=== PATIENT | female | born 1975 | race Caucasian/White ===

== ENCOUNTER 2016-05-21 14:17 | Emergency (ER) | payer OTHER ==
[2016-05-21] MEDS ORDERED: CEPHALEXIN 500 MG CAPSULE ONE (17:00)
[2016-05-21] MEDS ORDERED: SULFAMETHOXAZOLE 800 MG/TRIMETHOPRIM 160 MG TABLET ONE (17:01)
== END 2016-05-21 17:36 | disposition home or self-care (01) ==
LOC: ED 14:17
DX: L03.313 Cellulitis of chest wall (principal); Z85.3 Personal history of malignant neoplasm of breast; Z90.13 Acquired absence of bilateral breasts and nipples
CPT/HCPCS: 99283 ×2; A9270 ×2